=== PATIENT | male | born 1960 | race Caucasian/White ===

== ENCOUNTER 2021-07-09 18:22 | Emergency (ER) | payer OTHER ==
[~2021-07-09] VITALS: Ht 175.3 cm; Wt 117.9 kg
== END 2021-07-09 21:00 | disposition home or self-care (01) ==
LOC: ER1 18:22
DX: U07.1 COVID-19 (principal); Z23 Encounter for immunization; I11.9 Hypertensive heart disease without heart failure; E11.9 Type 2 diabetes mellitus without complications; E78.5 Hyperlipidemia, unspecified; Z79.82 Long term (current) use of aspirin
CPT/HCPCS: 99283; M0243